=== PATIENT | female | born 1985 | race Two or more races ===

== ENCOUNTER 2018-10-23 09:13 | Emergency (ER) | payer OTHER ==
[~2018-10-23] VITALS: Ht 172.7 cm; Wt 103.4 kg
[2018-10-23 09:16] VITALS: Ht 172.7 cm; Wt 103.4 kg
[2018-10-23 10:45] LABS: BASOPHIL % 0.4 % (0-2); CARBON DIOXIDE 25.9 mmol/L (21-32); CHLORIDE SERUM 105 mmol/L (98-107); CREATININE SERUM 0.7 mg/dL (0.6-1.0); GFR1 > 60 mL/min; GLUCOSE SERUM 104 mg/dL (74-106); PLATELET COUNT 251 x10^3mcL (130-400); RED CELL DISTRIBUTION WIDTH 12.8 % (11.5-14.5); SODIUM SERUM 139 mmol/L (136-145)
[2018-10-23 10:49] LABS: ALBUMIN 3.7 g/dL (3.4-5.0); ALKALINE PHOSPHATASE 49 U/L (46-116); ALT/SGPT 33 U/L (14-59); AST/SGOT 18 U/L (15-37); BILIRUBIN TOTAL 0.5 mg/dL (0.20-1.00); CHOLESTEROL 157 mg/dL (<200); LIPASE 87 IU/L (73-393); TOTAL PROTEIN, SERUM 7.2 g/dL (6.4-8.2)
[2018-10-23 10:50] LABS: HDL CHOLESTEROL 63 mg/dL (40-60)
[2018-10-23 12:01] LABS: UA SPECIFIC GRAVITY >1.30 (1.005-1.035)
[2018-10-23 12:02] LABS: microscopic required? YES; urine erythrocyte TRACE (NEGATIVE)
[2018-10-23 13:12] VITALS: BP 108/67
== END 2018-10-23 13:12 | disposition home or self-care (01) ==
LOC: ED 09:13
PROVIDERS: Emergency Medicine
DX: K80.70 Calculus of gallbladder and bile duct without cholecystitis without obstruction (principal); R07.89 Other chest pain; F17.210 Nicotine dependence, cigarettes, uncomplicated; E66.9 Obesity, unspecified; Z68.34 Body mass index [BMI] 34.0-34.9, adult
CPT/HCPCS: 99406; J1885; J3490; J7030